=== PATIENT | female | born 1990 | race Caucasian/White ===

== ENCOUNTER 2018-09-26 21:11 | Inpatient (IN) | payer MEDICAID, OTHER ==
[2018-09-26] MEDS ORDERED: NS 1,000 ML IV ONE (21:28)
--- NOTE | 2018-09-26 22:34 | EDPHY ---
H & P Time Seen by Provider: 09/26/18 21:28 HPI/ROS: HPI Near syncope. 28-year-old female by private vehicle with her mother and brother. This patient has been on an all juice diet or cleanse for the last 40 days. She presents to the emergency department complaining of lightheadedness and near- syncope after standing from the sitting position. She reports that she has felt lightheaded on and off for at least the last week but it was much worse today. She denies losing consciousness. No associated chest pain, palpitations , shortness of breath, headache. ROS: Constitutional: No fever, no chills. As above. Eyes: No discharge. No changes in vision. ENT: No sore throat. No nasal congestion or rhinorrhea. Respiratory: No cough. No shortness of breath. Cardiac: No chest pain, no palpitations. Gastrointestinal: No abdominal pain, no vomiting, no diarrhea. Genitourinary: No hematuria. No dysuria or increased frequency with urination. Musculoskeletal: No back pain. No neck pain. No myalgias or arthralgias. Skin: No rashes. Neurological: No headache. No focal weakness or altered sensation. Past medical history: She denies any past medical history. Social history: She is here with her brother and mother. Physical Exam: General Appearance: Alert, no distress. She is very thin. This patient is responding to questions appropriately and in full sentences. Eyes: Pupils equal and round no pallor or injection. No lid edema, erythema or injection. ENT, Mouth: Mucous membranes are moist. The pharyngeal tissues are unremarkable. No edema or swelling. No asymmetry suggestive of abscess. No erythema or exudates. Respiratory: There are no retractions, lungs are clear to auscultation with good air movement bilaterally. Cardiovascular: Regular rate and rhythm. No murmur. Gastrointestinal: Abdomen is soft and nontender, no masses, bowel sounds normal. No focal tenderness at McBurney's point. No Berger sign. Neurological: Motor sensory function is grossly intact. Cranial nerves are normal. Cerebellar function is normal. Skin: Warm and dry, no rashes. Musculoskeletal: Neck is supple and nontender. Extremities are symmetrical. All joints range without pain or impingement. Psychiatric: No agitation. No depression. Database: EKG: EKG time is 9:38 p.m.; EKG shows a narrow complex normal sinus rhythm with a ventricular rate of 76. The TX, QRS, QT intervals are within normal limits. There are no ST-T wave changes indicative of ischemic or injury pattern. No evidence of right heart strain. No evidence of WPW, hypertrophic cardiomyopathy , Brugada syndrome. Interpreted by me. Imaging: Procedures: Emergency department course: Triage vital signs reviewed and are normal. IV was placed. An EKG was obtained and reviewed by myself. Her basic metabolic panel indicates hyponatremia and hypokalemia which will have to be corrected in the the hospital. Her EKG is unremarkable. I discussed the results of her blood work with her and her family. I explained that it was her poor nutrition that was causing these problems. She and her family endorse her being admitted. Hospitalist paged. 10:45 p.m., I spoke with on-call hospitalist Dr. Michele. Case discussed in detail with him. The patient will be given 40 mEq of oral potassium in the emergency department initially. She will be given 2 g of IV magnesium in the emergency department. Sodium correction will be started. She will be given 500 of IV normal saline. Dr. Michele will see the patient in the emergency department. He accepts this patient for admission. The patient's remaining emergency department course under my care has been uneventful. She was admitted to the hospitalist service, telemetry in stable condition. 11:10 p.m., Dr. Michele is evaluating the patient in the emergency department now. Differential Diagnosis: The differential diagnosis on this patient includes but is not limited to malnourished state, hyponatremia, hypokalemia, dehydration. Arrhythmia, CVA, subarachnoid hemorrhage, pulmonary embolism, anemia unlikely. This represents a partial list of diagnoses considered. These considerations are based on history, physical exam, past history, reassessment and diagnostic testing. Smoking Status: Never smoked Constitutional: Initial Vital Signs Temperature (C) 36.3 C 09/26/18 21:24 Heart Rate 88 09/26/18 21:24 Respiratory Rate 16 09/26/18 21:24 Blood Pressure 123/76 H 09/26/18 21:24 O2 Sat (%) 98 09/26/18 21:24 O2 Delivery Mode Room Air Allergies/Adverse Reactions: No Known Allergies Allergy (Verified 09/26/18 21:22) Home Medications: Medication Instructions Recorded Denies 12/04/10 Medical Decision Making - Data Points Laboratory Results: Laboratory Results 09/26/18 21:42 09/26/18 09/26/18 09/26/18 22:50 21:42 21:42 WBC RBC Hgb Hct MCV MCH MCHC RDW Plt Count MPV Neut % (Auto) Lymph % (Auto) [place] % (Auto) Eos % (Auto) Baso % (Auto) Nucleat RBC Rel Count Absolute Neuts (auto) Absolute Lymphs (auto) Absolute Monos (auto) Absolute Eos (auto) Absolute Basos (auto) Absolute Nucleated RBC Immature Gran % Immature Gran # Sodium Potassium Chloride Carbon Dioxide Anion Gap BUN Creatinine Estimated GFR Glucose Serum Osmolality 252 mosmo/kg L mosmo/kg (280-297) Calcium Phosphorus Magnesium Total Bilirubin Conjugated Bilirubin Unconjugated Bilirubin AST ALT Alkaline Phosphatase Total Protein Albumin Beta HCG, Qual NEGATIVE Urine Osmolality Pending Ur Random Creatinine Pending Ur Random Sodium Pending 09/26/18 09/26/18 21:42 21:42 WBC Pending RBC Pending Hgb Pending Hct Pending MCV Pending MCH Pending MCHC Pending RDW Pending Plt Count Pending MPV Pending Neut % (Auto) Pending Lymph % (Auto) Pending [place] % (Auto) Pending Eos % (Auto) Pending Baso % (Auto) Pending Nucleat RBC Rel Count Pending Absolute Neuts (auto) Pending Absolute Lymphs (auto) Pending Absolute Monos (auto) Pending Absolute Eos (auto) Pending Absolute Basos (auto) Pending Absolute Nucleated RBC Pending Immature Gran % Pending Immature Gran # Pending Sodium 122 mEq/L L mEq/L (135-145) Potassium 2.5 mEq/L L* mEq/L (3.5-5.2) Chloride 80 mEq/L L mEq/L (97-110) Carbon Dioxide 31 mEq/l mEq/l (22-31) Anion Gap 11 mEq/L mEq/L (6-14) BUN 3 mg/dL L mg/dL (7-23) Creatinine 0.7 mg/dL mg/dL (0.6-1.0) Estimated GFR > 60 Glucose 106 mg/dL H mg/dL (70-100) Serum Osmolality Calcium 9.5 mg/dL mg/dL (8.5-10.4) Phosphorus 3.9 mg/dL mg/dL (2.5-4.5) Magnesium 1.6 mg/dL mg/dL (1.6-2.3) Total Bilirubin 1.1 mg/dL mg/dL (0.1-1.4) Conjugated Bilirubin 0.3 mg/dL mg/dL (0.0-0.5) Unconjugated Bilirubin 0.8 mg/dL mg/dL (0.0-1.1) AST 43 IU/L IU/L (14-46) ALT 30 IU/L IU/L (9-52) Alkaline Phosphatase 56 IU/L IU/L (38-126) Total Protein 7.2 g/dL g/dL (6.3-8.2) Albumin 4.4 g/dL g/dL (3.5-5.0) Beta HCG, Qual Urine Osmolality Ur Random Creatinine Ur Random Sodium Medications Given: Magnesium Sulfate (Magnesium Sulf 2 Gm (Premix)) 50 mls @ 50 mls/hr IV EDNOW ONE Stop: 09/26/18 23:42 Last Admin: 09/26/18 23:03 Dose: 50 mls Discontinued Medications Sodium Chloride (Ns) 1,000 mls @ 0 mls/hr IV EDNOW ONE; Wide Open PRN Reason: Protocol Stop: 09/26/18 21:29 Last Admin: 09/26/18 21:52 Dose: Not Given Potassium Chloride (Potassium Chloride Oral Liquid) 40 meq PO EDNOW ONE Stop: 09/26/18 22:44 Last Admin: 09/26/18 23:05 Dose: 40 meq Departure - Departure Disposition: [facility] Inpatient Acute Clinical Impression: Hyponatremia, Hypokalemia, Malnutrition, Near syncope Referrals: NONE *PRIMARY CARE P,. [Primary Care Provider] - As per Instructions
[2018-09-26] MEDS ORDERED: ONDANSETRON 4 MG/2 ML VIAL IVP PRN (22:42)
[2018-09-26] MEDS ORDERED: ONDANSETRON DISINTEGRATING 4 MG TAB PO PRN (22:42)
[2018-09-26] MEDS ORDERED: ACETAMINOPHEN 325 MG TAB PO PRN (22:42)
[2018-09-26] MEDS ORDERED: POTASSIUM CL 20 MEQ/15 ML UDCUP PO ONE (22:43)
[2018-09-26] MEDS ORDERED: NS 500 ML IV ONE (22:43)
[2018-09-26] MEDS ORDERED: MAGNESIUM SULF 2 GM/WATER 50 ML IV ONE (22:43)
--- NOTE | 2018-09-26 23:23 | CPEKG ---
Test Reason : OPEN Blood Pressure : / mmHG Vent. Rate : 076 BPM Atrial Rate : 075 BPM P-R Int : 060 ms QRS Dur : 089 ms QT Int : 418 ms P-R-T Axes : 073 081 060 degrees QTc Int : 471 ms Sinus rhythm Short AL interval Confirmed by Angela Ferreira ([id number]) on 09/26/2018 11:23:17 PM Referred By: Angela Ferreira Confirmed By:Angela Ferreira
[2018-09-26 23:24] LABS: PLATELET COUNT 368 10^3/uL (150-400)
--- NOTE | 2018-09-26 23:37 | PDGENHP ---
History and Physical - Chief Complaint Dizziness - History of Present Illness 28 yo F w/ minimal PMHx presents with presyncope. The patient tells me she has been on a grape juice only diet for the last 48 days. She describes herself as a fruitarian. She has no source of protein intake. Prior to this she was vegan. Today she noted presyncope that did not resolve with rest or more grape juice so she came in to the ED for evaluation. In the ED her evaluation is notable for severe hypokalemia and hyponatremia. She is being admitted for correction of these imbalances. Case discussed with ED physician Dr. Ferreira; records reviewed and summarized above. History Information - Allergies/Home Medication List Allergies/Adverse Reactions: No Known Allergies Allergy (Verified 09/26/18 21:22) Home Medications: Denies 12/04/10 [Last Taken Unknown] I have personally reviewed and updated: family history, medical history - Past Medical History no pertinent PMH - Surgical History Reports: no pertinent surgical hx - Family History Additional family history: Asked, denies - Social History Smoking Status: Never smoked Review of Systems Review of Systems: ROS: 10pt was reviewed & negative except for what was stated in HPI & below Physical Exam Physical Exam: Temp Pulse Resp BP Pulse Ox 36.3 C 88 16 123/76 H 98 09/26/18 21:24 09/26/18 21:24 09/26/18 21:24 09/26/18 21:24 09/26/18 21:24 Constitutional: no apparent distress, not in pain Eyes: PERRL, EOMI Ears, Nose, Mouth, Throat: moist mucous membranes, no oral mucosal ulcers Cardiovascular: regular rate and rhythym, no murmur, rub, or gallop Respiratory: no respiratory distress, no rales or rhonchi Gastrointestinal: normoactive bowel sounds, soft, non-tender abdomen Skin: warm, normal color Musculoskeletal: full muscle strength, no muscle tenderness Neurologic: AAOx3, CN II-XII Intact Psychiatric: interacting appropriately, not anxious Lab Data & Imaging Review 09/26/18 21:42 09/26/18 21:42 WBC 6.06 10^3/uL (3.80-9.50) 09/26/18 21:42 RBC 4.66 10^6/uL (4.18-5.33) 09/26/18 21:42 Hgb 14.9 g/dL (12.6-16.3) 09/26/18 21:42 Hct 39.0 % (38.0-47.0) 09/26/18 21:42 MCV 83.7 fL (81.5-99.8) 09/26/18 21:42 MCH 32.0 pg (27.9-34.1) 09/26/18 21:42 MCHC 38.2 g/dL (32.4-36.7) H 09/26/18 21:42 RDW 11.4 % (11.5-15.2) L 09/26/18 21:42 Plt Count 368 10^3/uL (150-400) 09/26/18 21:42 MPV 9.0 fL (8.7-11.7) 09/26/18 21:42 Neut % (Auto) 39.8 % (39.3-74.2) 09/26/18 21:42 Lymph % (Auto) 49.8 % (15.0-45.0) H 09/26/18 21:42 [place] % (Auto) 8.4 % (4.5-13.0) 09/26/18 21:42 Eos % (Auto) 1.2 % (0.6-7.6) 09/26/18 21:42 Baso % (Auto) 0.5 % (0.3-1.7) 09/26/18 21:42 Nucleat RBC Rel Count 0.0 % (0.0-0.2) 09/26/18 21:42 Absolute Neuts (auto) 2.41 10^3/uL (1.70-6.50) 09/26/18 21:42 Absolute Lymphs (auto) 3.02 10^3/uL (1.00-3.00) H 09/26/18 21:42 Absolute Monos (auto) 0.51 10^3/uL (0.30-0.80) 09/26/18 21:42 Absolute Eos (auto) 0.07 10^3/uL (0.03-0.40) 09/26/18 21: Absolute Basos (auto) 0.03 10^3/uL (0.02-0.10) 09/26/18 21:42 Absolute Nucleated RBC 0.00 10^3/uL (0-0.01) 09/26/18 21:42 Immature Gran % 0.3 % (0.0-1.1) 09/26/18 21:42 Immature Gran # 0.02 10^3/uL (0.00-0.10) 09/26/18 21:42 RBC/WBC/PLT Morphology NORMAL (NORMAL) 09/26/18 21:42 Platelet Estimate ADEQUATE (ADEQ) 09/26/18 21:42 Sodium 122 mEq/L (135-145) L 09/26/18 21:42 Potassium 2.5 mEq/L (3.5-5.2) L* 09/26/18 21:42 Chloride 80 mEq/L (97-110) L 09/26/18 21:42 Carbon Dioxide 31 mEq/l (22-31) 09/26/18 21:42 Anion Gap 11 mEq/L (6-14) 09/26/18 21:42 BUN 3 mg/dL (7-23) L 09/26/18 21:42 Creatinine 0.7 mg/dL (0.6-1.0) 09/26/18 21:42 Estimated GFR > 60 09/26/18 21:42 Glucose 106 mg/dL (70-100) H 09/26/18 21:42 Serum Osmolality 252 mosmo/kg (280-297) L 09/26/18 21:42 Calcium 9.5 mg/dL (8.5-10.4) 09/26/18 21:42 Phosphorus 3.9 mg/dL (2.5-4.5) 09/26/18 21:42 Magnesium 1.6 mg/dL (1.6-2.3) 09/26/18 21:42 Total Bilirubin 1.1 mg/dL (0.1-1.4) 09/26/18 21:42 Conjugated Bilirubin 0.3 mg/dL (0.0-0.5) 09/26/18 21:42 Unconjugated Bilirubin 0.8 mg/dL (0.0-1.1) 09/26/18 21:42 AST 43 IU/L (14-46) 09/26/18 21:42 ALT 30 IU/L (9-52) 09/26/18 21:42 Alkaline Phosphatase 56 IU/L (38-126) 09/26/18 21:42 Total Protein 7.2 g/dL (6.3-8.2) 09/26/18 21:42 Albumin 4.4 g/dL (3.5-5.0) 09/26/18 21:42 Beta HCG, Qual NEGATIVE 09/26/18 21:42 Urine Osmolality 90 mosmo/kg (300-900) L 09/26/18 22:50 Visualized and Interpreted EKG results: Yes EKG Interpretation: Positive for: normal sinsus rhythm, other (QTc 471, possible U waves lateral leads) Assessment & Plan Assessment: 28 yo F presents with presyncope and found to be hypokalemic and hyponatremic w / likely malnourishment. Plan: 1. Presyncope - Related to malnutrition, electrolyte imbalances, and suspected malnutrition. The patient has been a "fruitarian" for the last 48 days, drinking only grape juice with no protein intake. - Address individual issues as below 2. Hyponatremia - Likely a combination of dehydration and very low solute intake noting she only drinks grape juice. - S/p 500 mL NS in the ED, no additional IVF for now - Will aim for slow correction as this may have been present for some time noting 48 day juice diet - Repeat BMP at 0200, 0600 and adjust accordingly - Obtain [place], Ashley 3. Hypokalemia - K 2.5 on admission; ECG (personally reviewed/interpreted) with QTc of 471 and subtle U waves in a few precordial leads. - Replete PRN - Monitor on telemetry 4. Protein calorie malnutrition - Patient has only drank grape juice for the last 48 days. She appears underweight on exam. - Will check iron panel, B12, Vit D - Will benefit from counseling regarding this Diet - Regular Code - Full Ppx - Low risk, ambulate TID Dispo - Admit under observation status
[2018-09-27 06:20] LABS: PLATELET COUNT 332 10^3/uL (150-400)
--- NOTE | 2018-09-27 09:39 | HOSPPROG ---
Hospitalist Progress Note Assessment/Plan: 28 yo F presents with presyncope and found to be hypokalemic and hyponatremic. She has been on a 48 day grape juice diet. 1. Hyponatremia: Urine sodium undetectable. Suspect due to very low solute intake. Too quick of improvement with ~600mL of NS (122->132). - Afternoon Na remains stable at 133 despite D5W - Increasing D5W to 125ml/hr - Recheck Na this evening and again in AM, goal 130 this evening - Check AM cortisol 2. Hypokalemia, hypomagnesemia: K 2.5 on admit, ECG with QTc 471. Improved. - Replete PRN 3. Severe protein calorie malnutrition - Nutrition consulted - Will need to very slowly re-introduce food back into diet as she is at risk for refeeding syndrome - I discussed whether she is intentionally restricting PO intake (ie. eating disorder) but she adamantly denies. Low threshold to have psych/behavioral health meet with patient tomorrow 4. Low vitamin D - Offered supplementation, she declines 5. Presyncope: Related to electrolyte imbalances, malnutrition. Resolved. VTE ppx: ambulation Code: full Dispo: Remain inpatient for correction of severe electrolyte disturbances Subjective: Feeling ok. Had bad reaction to IV magnesium (burned). Denies feeling dizzy. No palpitations. No leg swelling. Objective: Vital Signs Temp Pulse Resp BP Pulse Ox 36.3 C 76 18 95/51 L 100 09/26/18 21:24 09/27/18 02:00 09/27/18 02:00 09/27/18 02:00 09/27/18 02:00 Laboratory Results 09/27/18 05:55 09/27/18 05:55 - Physical Exam Constitutional: no apparent distress, cachectic Eyes: PERRL Ears, Nose, Mouth, Throat: other (no oral ulcers or stomatitis) Cardiovascular: regular rate and rhythym, no murmur, rub, or gallop, No edema Respiratory: no respiratory distress, no rales or rhonchi, clear to auscultation Gastrointestinal: normoactive bowel sounds, soft, non-tender abdomen, no palpable masses Genitourinary: no bladder fullness, no bladder tenderness, no renal bruits Skin: no rashes or abrasions, no fluctuance, no induration Musculoskeletal: full muscle strength, no muscle tenderness, normal joint ROM Neurologic: AAOx3, sensation intact bilaterally Psychiatric: interacting appropriately, not anxious, not encephalopathic, thought process linear ICD10 Worksheet Patient Problems: Problems Problem Status Onset Hypokalemia Acute Hyponatremia Acute Malnutrition Acute Near syncope Acute
[2018-09-27] MEDS: D5W 1,000 ML IV SCH ×3 (10:05→22:45)
--- NOTE | 2018-09-27 11:44 | PDMN ---
Medical Necessity Medical necessity: Pt meets IP criteria as of 09/26/1028 per and [facility] ( G[facility]); est los > 2 mn for ongoing tx and management of severe dehydration and malnourishment with hypokalemia (K 2.5) with ECG changes and hyponatremia (na 122) s/t pt being "frutarian" and only consuming grape juice for the last 48 days; requiring further workup, IVF, serial labs and dietary consultation.
--- NOTE | 2018-09-27 12:00 | ASMTCMCOM ---
CM Note LARA Note Notes: PT in FED accompanied by her mother and brother. Pt stated she did a "cleanse prep" of strictly fruit followed by 45 days of grape juice. She stated that it is not a diet it is a lifestyle. Her meal plan following the cleanse is "celery juice for electrolytes with fruits and avocado". When asked if she consulted with her doctor about the meal plan she said " not many doctors in this country would know about it". The pt stated that she was not interested in nutrition consultation other than asking a few questions and stated that being in the hospital has interfered with her meal plan. Her family expressed support her choices. She does not believe there is a reason for her to stay in the hospital at this time. Pt would benefit from nutrition consult as well as behavior health consult. DC needs HAY, LARA to follow. Date Signed: 09/27/2018 11:59 AM Electronically Signed By:Brian Louise LCSW
--- NOTE | 2018-09-28 14:17 | ASMTCMCOM ---
CM Note CM Note Notes: 09/28/2018 Case Management Note Discussed pt during rounds this morning. Pt has disordered eating that is significantly impacting her life. Met w/pt, brother Fan Calero [phone] and Mom Stefanie De La Rosa [phone] to discuss d/c needs. Provided info for [facility] counseling services and medicaid personal counselors. Strongly recommended connecting with the [place] [facility] clinic. [place] provides family counseling as well, encouraged Mom and Brother to attend those groups regardless of pt participation. Pt reports she is a raw vegan. When asked about strategies to add protein to her diet, she wanted to avoid nuts and nut butters. Pt reports she uses an javed to keep track of her micronutrients and calories per day. [facility] to follow after discharge. Provided [facility] brochure to pt. Requested [employer] visit with pt to explain Medicaid coverage. Case Management d/c poc: independent with follow up as directed. Case Management available if needs change. Date Signed: 09/28/2018 02:16 PM Electronically Signed By:Regina Mayberry RN
--- NOTE | 2018-09-28 15:58 | HOSPPROG ---
Hospitalist Progress Note Assessment/Plan: 28 yo F presents with presyncope and found to be hypokalemic and hyponatremic. She has been on a 48 day grape juice diet. 1. Hyponatremia: Urine sodium undetectable. Suspect due to very low solute intake. Too quick of improvement with ~600mL of NS (122->132). -s/p D5W -AM cortisol ok 2. Hypokalemia, hypomagnesemia: K 2.5 on admit, ECG with QTc 471. Improved. - Replete PRN 3. Severe protein calorie malnutrition - Nutrition consulted - Will need to very slowly re-introduce food back into diet as she is at risk for refeeding syndrome 4. Low vitamin D - Offered supplementation, she declines 5. Presyncope: Related to electrolyte imbalances, malnutrition. Resolved. 6. Eating disorder, non specified VTE ppx: ambulation Code: full Plan: cont inpatient determine Na trend today off IVF. If rises too quickly may need more D5W. Subjective: no cp or sob. wants to be discharged Objective: Vital Signs Temp Pulse Resp BP Pulse Ox 36.4 C 80 18 82/55 L 98 09/28/18 12:38 09/28/18 12:38 09/28/18 12:38 09/28/18 12:38 09/28/18 12:38 Laboratory Results 09/27/18 05:55 09/28/18 13:10 09/27/18 09/28/18 09/29/18 05:59 05:59 05:59 Intake Total 2315 740 Output Total 300 400 Balance 2015 340 - Physical Exam Constitutional: no apparent distress Eyes: PERRL, EOMI Ears, Nose, Mouth, Throat: moist mucous membranes, hearing normal Cardiovascular: regular rate and rhythym, No edema Respiratory: no respiratory distress, no rales or rhonchi, clear to auscultation Gastrointestinal: normoactive bowel sounds, soft, non-tender abdomen Skin: warm Neurologic: AAOx3 Psychiatric: interacting appropriately, not anxious, not encephalopathic Lymph, Heme, Immunologic: No petechiae ICD10 Worksheet Patient Problems: Problems Problem Status Onset Hypokalemia Acute Hyponatremia Acute Malnutrition Acute Near syncope Acute
[2018-09-29 07:28] VITALS: BP 90/49
--- NOTE | 2018-09-29 11:51 | ASDISCHSUM ---
Discharge Information Plan Status:Home with No Needs Medically Cleared to Leave: Discharge Date: CM D/C Disposition:Home, Routine, Self-Care ADT D/C Disposition:Home, Routine, Self-Care Projected Discharge Date: Transportation at D/C:Family Discharge Delay Reason: Follow-Up Date: Discharge Slot: Final Diagnosis: Placement Information Patient Contact Information Contact Name:LAURA Relationship:Mother Address:[address] [place] [address] City:[facility] Phone: State/Zip Code:[place] [address] Email: Financial Information Financial Class:Medicaid Primary Plan Desc:MED[place] Primary Plan Number:[id number] Secondary Plan Desc: Secondary Plan Number: Assessment Information [facility] LARA Progress Note CM Note CM Note Notes: PT in FED accompanied by her mother and brother. Pt stated she did a "cleanse prep" of strictly fruit followed by 45 days of grape juice. She stated that it is not a diet it is a lifestyle. Her meal plan following the cleanse is "celery juice for electrolytes with fruits and avocado". When asked if she consulted with her doctor about the meal plan she said " not many doctors in this country would know about it". The pt stated that she was not interested in nutrition consultation other than asking a few questions and stated that being in the hospital has interfered with her meal plan. Her family expressed support her choices. She does not believe there is a reason for her to stay in the hospital at this time. Pt would benefit from nutrition consult as well as behavior health consult. DC needs LARA GUIDO to follow. Date Signed: 09/27/2018 11:59 AM Electronically Signed By:Brian Louise LCSW LACE MAGGIE Length of stay for Answers: 2 days current admission Acuity / Level of Answers: Yes Care: Did the patient have an inpatient admission? Comorbidities - select Answers: Other Notes: eating disorder all that apply # of Emergency department Answers: 1-2 visits in the last 6 months Social determinants Answers: Mental health diagnosis (anxiety, depression, pers onality disorders, etc.) Lack of community resources and/or lack of social support (no pcp, lives alone, transportation, bhaskar d) Score: 14 Date Signed: 09/29/2018 11:49 AM Electronically Signed By:SNEHA Verma [facility] CM Progress Note CM Note CM Note Notes: 09/28/2018 Case Management Note Discussed pt during rounds this morning. Pt has disordered eating that is significantly impacting her life. Met w/pt, brother Fan Calero [phone] and Mom Stefanie De La Rosa [phone] to discuss d/c needs. Provided info for [facility] counseling services and medicaid personal counselors. Strongly recommended connecting with [facility]. [facility] provides family counseling as well, encouraged Mom and Brother to attend those groups regardless of pt participation. Pt reports she is a raw vegan. When asked about strategies to add protein to her diet, she wanted to avoid nuts and nut butters. Pt reports she uses an javed to keep track of her micronutrients and calories per day. [facility] to follow after discharge. Provided [facility] brochure to pt. Requested [employer] visit with pt to explain Medicaid coverage. Case Management d/c poc: independent with follow up as directed. Case Management available if needs change. Date Signed: 09/28/2018 02:16 PM Electronically Signed By:Regina Mayberry RN Case Management Discharge Plan Note Case Management Discharge Discharge Order Complete? Answers: Yes Patient to Obtain Answers: via Family Medications Transportation Arranged Answers: Family/Friends Family Notified Answers: Yes Discharge Comments Notes: CM met with pt and her mother to discuss discharge plan. CM provided list of PCP providers and pt said she would make follow-up PCP appt. Pt report she did not need any other resources at this time, family to transport. No other CM needs identified. Date Signed: 09/29/2018 11:48 AM Electronically Signed By:SNEHA Verma Intervention Information
--- NOTE | 2018-09-29 14:10 | PDDCSUM ---
Discharge Summary Discharge Summary: HPI/HOSPITAL COURSE: 28 yo F admitted with presyncope and found to be hypokalemic and hyponatremic. She has been on a 48 day grape juice diet. She was admitted. Please see below for details. Na on discharge is 132. She has been off IVF for over 24 hrs. Hypokalemia has resolved I'm am suspicious about an eating disorder which she denies. she was given information about it She will f/u with her PCP in one week. will have repeat labs DDX: 1. Hyponatremia: Urine sodium undetectable. Suspect due to very low solute intake. Too quick of improvement with ~600mL of NS (122->132) initially -s/p D5W after initial increase. Now off IV Fluids, on PO for over 24 hrs. Na is stable -AM cortisol ok -undetectable Urine Na 2. Hypokalemia, hypomagnesemia: K 2.5 on admit, ECG with QTc 471. Improved. - Replete PRN 3. Severe protein calorie malnutrition - Nutrition consulted 4. Low vitamin D - Offered supplementation, she declines 5. Presyncope: Related to electrolyte imbalances, malnutrition. Resolved. 6. Eating disorder, non specified Exam: NAD AAOX3 RRR CTA B S/NT/ND MEDS: SEE MED REC F/U: PER ABOVE TOTAL TIME SPEN ON D/C IS 35 MINS
== END 2018-09-29 12:38 | disposition home or self-care (01) | DRG 422 ==
LOC: F2W 09-27 12:20
PROVIDERS: ADMIT Student in an Organized Health Care Education/Training Program; ATTEND Student in an Organized Health Care Education/Training Program
DX: E87.6 Hypokalemia (principal); E43 Unspecified severe protein-calorie malnutrition; E86.9 Volume depletion, unspecified; E87.1 Hypo-osmolality and hyponatremia; R55 Syncope and collapse; F50.9 Eating disorder, unspecified
CPT/HCPCS: 82607-90; 84480-90; 96365; J3475

== ENCOUNTER 2018-10-06 20:14 | Emergency (ER) | payer MEDICAID ==
[2018-10-06 21:10] LABS: PLATELET COUNT 328 10^3/uL (150-400)
--- NOTE | 2018-10-06 21:39 | EDPHY ---
General Time Seen by Provider: 10/06/18 20:47 Narrative: CLINICAL IMPRESSION: Disordered eating ASSESSMENT/PLAN: 28-year-old very frail thin female, presents to the emergency department with vague subjective complaints of "feeling weird". Patient was discharged after she was admitted for hypokalemia, hyponatremia, hypomagnesemia secondary to disordered eating however patient adamantly refuses having an eating disorder. She is requesting electrolyte redraw today. Fortunately this was without significant abnormality. She has no focal neurological deficits. Vital signs are stable. She states she did see a note specialist as an inpatient but does not have an outpatient note specialist or primary care. I provided her resources and referrals. Warning signs for return to emergency department sooner outlined and discharge. DIFFERENTIAL DX: Differential includes but not limited to disordered eating, anorexia, electrolyte imbalance, dehydration ED PROCEDURES: See lab and/or imaging results below ED COURSE: Lab results reviewed with the patient. No significant abnormalities. Vital signs remained stable. CHIEF COMPLAINT: "I feel weird" HPI: 28-year-old female who is discharged from this hospital approximately 10 days ago returns to the ED today stating that she has intermittent tingling and a sensation of "feeling weird". Patient admits that she was hospitalized after she did a 48 today grape juice fast. She reports since being discharged she has slowly been reintroduced thing mostly fruits. She had "a whole sweet potato today" and a half and avocado yesterday. She has also been having a lot of celery juice. She denies any other solid foods. She saw a note specialist when she was admitted but states "I do not have an eating disorder, I simply eat vegan and eat fruits because I am trying to cleanse my system". She is not working with a note specialist as an outpatient. She is accompanied by her mother who states she has lost "a lot of weight". She has no complaints of palpitations, chest pain, shortness of breath. No fainting or syncopal episodes. She is having bowel movements and urinating. She reports she is late on her menstrual cycle by at least 15 days, but denies . No UTI symptoms. She was admitted for hypokalemia, hyponatremia. PAST MEDICAL HISTORY: Disordered eating, history of electrolyte imbalance See nurse/triage notes for additional history if applicable Pertinent Past Surgical History: None reported Family History: Noncontributory Social History: Here with her mother REVIEW OF SYSTEMS: All other systems negative Constitutional: No fever, no chills, positive for appetite change. Eyes: No discharge, vision change ENT: No sore throat, congestion, ear pain. Cardiovascular: No chest pain, no palpitations. Respiratory: No cough, no shortness of breath. Gastrointestinal: No abdominal pain, no vomiting, diarrhea. Genitourinary: No hematuria, dysuria, flank pain, pelvic pain Musculoskeletal: No back pain, joint swelling, joint pain, myalgias. Skin: No rashes, color change. Neurological: No headache, dizziness, weakness, intermittent tingling. PHYSICAL EXAM: General Appearance: Alert, oriented, very thin, appropriate, cooperative, NAD, VSS, no hypoxia. HEENT: Oropharynx clear is no erythema or exudates, no tonsillar hypertrophy or asymmetry. Dentition without abnormality.] Neck: Supple, nontender, no lymphadenopathy, no thyroid mass or thyromegaly appreciated, no midline pain, FROM, no meningismus. Respiratory: There are no retractions, lungs are clear to auscultation. Cardiac: Regular rate and rhythm, no murmurs or gallops. Gastrointestinal: Abdomen is soft, nontender, bowel sounds normal, no masses/ hernia, no rigidity, guarding or focal peritoneal findings. Neurological: Alert and oriented x 3, CN 2-12 grossly intact, no limb ataxia, DTR's intact, normal sensation and strength Skin: Warm, dry, no rashes, no nodules on palpation. Musculoskeletal: Extremities are symmetrical, full range of motion, no tenderness, deformity, swelling, or erythema. Very thin, atrophy of muscles noted Psychiatric: Patient is oriented X 3, there is no agitation. MEDICAL DECISION MAKING: Patient was seen independently. Secondary supervising physician at time of evaluation was Dr. Watson . Diagnosis: Disordered eating. New, requires workup Summary: See Assessment and Plan for summary of ED visit Clinical lab tests: ordered / reviewed. Decision to obtain medical records or history from someone other than the patient: Patient's mother Review / Summarize previous medical records: Reviewed recent admission notes Discussed patient with another provider: No Patient Progress: Stable for discharge. - History Smoking Status: Never smoked - Objective Vital Signs: Initial Vital Signs Temperature (C) 36.7 C 10/06/18 20:18 Heart Rate 73 10/06/18 20:18 Respiratory Rate 18 10/06/18 20:18 Blood Pressure 105/68 10/06/18 20:18 O2 Sat (%) 98 10/06/18 20:18 O2 Delivery Mode Room Air Allergies/Adverse Reactions: No Known Allergies Allergy (Verified 10/06/18 20:21) Home Medications: Medication Instructions Recorded NK [No Known Home Meds] 09/27/18 Laboratory Results: Laboratory Results 10/06/18 20:35 10/06/18 20:35 Departure - Departure Disposition: Home, Routine, Self-Care Clinical Impression: Tingling Condition: Good Instructions: Paresthesia (ED) Additional Instructions: DISCHARGE INSTRUCTIONS FROM YOUR DOCTOR Thank you for visiting our emergency department today. You were treated by a physician nursing home assistant today and your case was reviewed with our ED Attending physician. Please keep in mind that discharge from the emergency department does not mean that there is nothing wrong - it simply means that we have not identified an emergency condition that requires further evaluation or treatment in the hospital. You should always plan to follow up with primary care for re- evaluation of your condition in the next 2-3 days. If you have been referred to a specialist, please call as soon as possible (today or tomorrow) to schedule your follow up appointment at the appropriate time. LABORATORY EVALUATION TODAY IS NORMAL. I WOULD STRONGLY RECOMMEND THAT YOU ESTABLISHED CARE WITH PRIMARY CARE AND AN OUTPATIENT ELDERLY SITTER. REFERRAL WAS GIVEN. PLEASE RETURN TO THE ED FOR WORSENING SYMPTOMS OR ANY OTHER CONCERNS. People present with illnesses and injuries in different ways, and it is always possible that we have missed something. You may always return for re-evaluation if symptoms worsen or if they are not improving or if you develop new/different symptoms. Again, thank you for choosing our emergency department. We hope that you feel better. Referrals: NONE *PRIMARY CARE P,. [Primary Care Provider] - As per Instructions [facility],. [Clinic] - 2-3 days, call for appt.
[2018-10-06 22:39] VITALS: BP 103/37
== END 2018-10-06 22:38 | disposition home or self-care (01) ==
DX: R20.2 Paresthesia of skin (principal)